=== PATIENT | female | born 1975 | race Caucasian/White ===

== ENCOUNTER 2018-10-22 01:00 | Inpatient (IN) | payer MEDICAID ==
[~2018-10-22] VITALS: Ht 154.9 cm; Wt 68.3 kg
[2018-10-22 01:15] VITALS: Ht 154.9 cm; Wt 68.3 kg
[2018-10-22 02:43] LABS: BASOPHIL % 0.5 % (0-2); PLATELET COUNT 364 x10^3mcL (130-400); RED CELL DISTRIBUTION WIDTH 13.4 % (11.5-14.5)
[2018-10-22 02:47] LABS: microscopic required? YES; urine erythrocyte 3+ (NEGATIVE)
[2018-10-22 02:48] LABS: CALCIUM 8.6 mg/dL (8.5-10.1); CARBON DIOXIDE 25.9 mmol/L (21-32); CHLORIDE SERUM 103 mmol/L (98-107); CREATININE SERUM 0.5 mg/dL (0.6-1.0); GFR1 > 60 mL/min; GLUCOSE SERUM 104 mg/dL (74-106); POTASSIUM SERUM 3.4 mmol/L (3.5-5.1); SODIUM SERUM 139 mmol/L (136-145)
[2018-10-22 02:54] LABS: ALBUMIN 3.3 g/dL (3.4-5.0); ALKALINE PHOSPHATASE 130 U/L (46-116); ALT/SGPT 32 U/L (14-59); AMYLASE 40 U/L (25-115); AST/SGOT 27 U/L (15-37); BILIRUBIN TOTAL 1.59 mg/dL (0.20-1.00); LIPASE 63 IU/L (73-393); TOTAL PROTEIN, SERUM 7.7 g/dL (6.4-8.2)
[2018-10-22 08:04] VITALS: BP 150/105
[2018-10-22 08:23] VITALS: BP 150/105
[2018-10-22 09:02] LABS: BILIRUBIN DIRECT 0.34 mg/dL (0.0-0.2); BILIRUBIN TOTAL 1.55 mg/dL (0.20-1.00)
[2018-10-22 10:09] LABS: AMPHETAMINE QUAL UR NONE DETECTED (See below)
[2018-10-22 14:04] VITALS: BP 143/80
[2018-10-22 17:10] VITALS: BP 130/93
[2018-10-22 19:04] VITALS: BP 132/59
[2018-10-22 20:55] VITALS: BP 126/81
[2018-10-23 05:27] VITALS: BP 139/94
[2018-10-23 06:49] LABS: BASOPHIL % 0.4 % (0-2); PLATELET COUNT 349 x10^3mcL (130-400); RED CELL DISTRIBUTION WIDTH 14.4 % (11.5-14.5)
[2018-10-23 07:07] LABS: ALKALINE PHOSPHATASE 131 U/L (46-116); ALT/SGPT 38 U/L (14-59); AST/SGOT 25 U/L (15-37); BILIRUBIN TOTAL 1.28 mg/dL (0.20-1.00); CALCIUM 8.2 mg/dL (8.5-10.1); CARBON DIOXIDE 26.1 mmol/L (21-32); CHLORIDE SERUM 106 mmol/L (98-107); CREATININE SERUM 0.5 mg/dL (0.6-1.0); GFR1 > 60 mL/min; GLUCOSE SERUM 110 mg/dL (74-106); MAGNESIUM 2.3 mg/dL (1.8-2.4); POTASSIUM SERUM 3.7 mmol/L (3.5-5.1); SODIUM SERUM 140 mmol/L (136-145); TOTAL PROTEIN, SERUM 6.8 g/dL (6.4-8.2)
[2018-10-23 07:09] LABS: ALBUMIN 2.7 g/dL (3.4-5.0)
[2018-10-23 08:39] VITALS: BP 144/85
[2018-10-23 20:04] VITALS: BP 126/88
[2018-10-24 06:09] VITALS: BP 117/84
[2018-10-24 06:26] LABS: BASOPHIL % 0.2 % (0-2); PLATELET COUNT 345 x10^3mcL (130-400); RED CELL DISTRIBUTION WIDTH 14.3 % (11.5-14.5)
[2018-10-24 06:40] LABS: CHLORIDE SERUM 105 mmol/L (98-107); CREATININE SERUM 0.5 mg/dL (0.6-1.0); GFR1 > 60 mL/min; GLUCOSE SERUM 112 mg/dL (74-106); PHOSPHOROUS 3.6 mg/dL (2.5-4.9); POTASSIUM SERUM 3.9 mmol/L (3.5-5.1); SODIUM SERUM 140 mmol/L (136-145)
[2018-10-24 09:41] VITALS: BP 119/82
[2018-10-24 17:46] VITALS: BP 149/93
[2018-10-24 21:17] VITALS: BP 143/97
[2018-10-25 06:00] VITALS: BP 149/97
[2018-10-25 06:15] LABS: BASOPHIL % 0.2 % (0-2); RED CELL DISTRIBUTION WIDTH 14.3 % (11.5-14.5)
[2018-10-25 06:28] LABS: PLATELET COUNT 401 x10^3mcL (130-400)
[2018-10-25 06:31] LABS: CALCIUM 8.5 mg/dL (8.5-10.1); CARBON DIOXIDE 26.5 mmol/L (21-32); CHLORIDE SERUM 106 mmol/L (98-107); CREATININE SERUM 0.5 mg/dL (0.6-1.0); GFR1 > 60 mL/min; GLUCOSE SERUM 101 mg/dL (74-106); MAGNESIUM 2.1 mg/dL (1.8-2.4); POTASSIUM SERUM 3.3 mmol/L (3.5-5.1); SODIUM SERUM 142 mmol/L (136-145)
[2018-10-25 09:02] VITALS: BP 145/96
[2018-10-25 17:21] VITALS: BP 142/96
[2018-10-25 18:36] VITALS: BP 142/96
== END 2018-10-25 19:55 | disposition home or self-care (01) | DRG 263 ==
LOC: ED 01:00 → MU 06:29
PROVIDERS: Emergency Medicine; Internal Medicine; Surgery; ADMIT General Practice
PROC: 0FT44ZZ Resection of Gallbladder, Percutaneous Endoscopic Approach (ICD-10-PCS; principal; 2018-10-23 16:30)
DX: K80.00 Calculus of gallbladder with acute cholecystitis without obstruction (principal); N17.0 Acute kidney failure with tubular necrosis; E44.0 Moderate protein-calorie malnutrition; K65.9 Peritonitis, unspecified; N39.0 Urinary tract infection, site not specified; E87.6 Hypokalemia; N20.0 Calculus of kidney; R80.9 Proteinuria, unspecified; Z68.25 Body mass index [BMI] 25.0-25.9, adult
CPT/HCPCS: 90658; 94150; J0330; J0690; J1170; J1644; J1885; J1956; J2250; J2405; J2543; J2704; J2710; J3010; J3490; J7030; J7120; Q0092